=== PATIENT | female | born 1990 | race African-American/Black ===

== ENCOUNTER 2018-03-24 17:09 | Emergency (ER) | payer SELFPAY ==
--- NOTE | 2018-03-24 17:30 | EDPHY ---
H & P Stated Complaint: VAGINAL BLEEDING UNRELATED TO MENSES Time Seen by Provider: 03/24/18 17:17 HPI/ROS: CHIEF COMPLAINT: Abnormal vaginal bleeding HISTORY OF PRESENT ILLNESS: 27-year-old female presents with abnormal vaginal bleeding. Last menstrual period was 02/10/2018. The period lasted 2 weeks and waxed/waned in amount. Bleeding stopped 2 weeks ago. Recurrent bleeding and pelvic cramping started yesterday, similar to usual menstrual periods. 1 pad today. Sexually active, uses contraceptives. REVIEW OF SYSTEMS: complete 10 point ROS negative except at noted in the HPI - Personal History LMP (Females 10-55): Now Current Tetanus Diphtheria and Acellular Pertussis (TDAP): Yes Tetanus Vaccine Date: < 10 YEARS - Medical/Surgical History Hx Asthma: No Hx Chronic Respiratory Disease: No Hx Diabetes: No Hx Cardiac Disease: No Hx Renal Disease: No Hx Cirrhosis: No Hx Alcoholism: No Hx HIV/AIDS: No Hx Splenectomy or Spleen Trauma: No Other PMH: Anemia - Social History Smoking Status: Never smoked Alcohol Use: Sober - Physical Exam Exam: General Appearance: Alert, pleasant Eyes: Pupils equal and round, no conjunctival pallor ENT, Mouth: Mucous membranes moist Neck: Normal inspection Respiratory: Lungs are clear to auscultation Cardiovascular: Regular rate and rhythm Gastrointestinal: Abdomen is soft and nontender Neurological: A&O, nonfocal, normal gait Skin: Warm and dry Extremities: Normal inspection Psychiatric: Mood and affect normal Constitutional: Initial Vital Signs Temperature (C) 37 C 03/24/18 17:11 Heart Rate 105 H 03/24/18 17:11 O2 Sat (%) 93 03/24/18 17:11 O2 Delivery Mode Room Air Allergies/Adverse Reactions: No Known Allergies Allergy (Unverified 03/24/18 17:15) Home Medications: Medication Instructions Recorded NK [No Known Home Meds] 05/08/16 Medical Decision Making ED Course/Re-evaluation: Pt mildly anemic, not . c/w dysfunctional uterine bleeding. Declines BCP's. Will f/u fish and wildlife biologist. - Data Points Laboratory Results: 03/24/18 03/24/18 17:43 17:30 POC Hgb 10.5 gm/dL L gm/dL (12.6-16.3) POC Hct 31 % L % (38-47) POC Sodium 141 mEq/L mEq/L (135-145) POC Potassium 3.8 mEq/L mEq/L (3.3-5.0) POC Chloride 107 mEq/L mEq/L (97-110) POC BUN 7 mg/dL mg/dL (7-23) POC Creatinine 0.5 mg/dL L mg/dL (0.6-1.0) POC Glucose 112 mg/dL H mg/dL (70-100) Beta HCG, Qual NEGATIVE Point of Care Test Results: Chemistry 03/24/18 17:43 POC Sodium 141 mEq/L mEq/L (135-145) POC Potassium 3.8 mEq/L mEq/L (3.3-5.0) POC Chloride 107 mEq/L mEq/L (97-110) POC BUN 7 mg/dL mg/dL (7-23) POC Creatinine 0.5 mg/dL L mg/dL (0.6-1.0) POC Glucose 112 mg/dL H mg/dL (70-100) ISTAT H&H 03/24/18 17:43 POC Hgb 10.5 gm/dL L gm/dL (12.6-16.3) POC Hct 31 % L % (38-47) Departure - Departure Disposition: Home, Routine, Self-Care Clinical Impression: Dysfunctional uterine bleeding Condition: Good Instructions: Dysfunctional Uterine Bleeding (ED) Additional Instructions: Ibuprofen 600 mg 3 times daily while the pain persists. Referrals: Edith Johnston MD [Medical Doctor] - As per Instructions (Call to make an appointment.)
[2018-03-24 18:14] VITALS: BP 130/81
== END 2018-03-24 18:14 | disposition home or self-care (01) ==
DX: N93.8 Other specified abnormal uterine and vaginal bleeding (principal)
CPT/HCPCS: 82435-PO; 82565-PO; 82947-PO; 84132-PO; 84295-PO; 84520-PO; 85014-PO